=== PATIENT | female | born 1970 ===

== ENCOUNTER 2017-01-22 20:38 | Emergency (ER) | payer MEDICAID ==
[2017-01-22 20:38] VITALS: BMI 29.0
[2017-01-22 20:51] VITALS: BP 128/80; PULSE 80; RESP 18; TEMP 99; O2SAT 97
--- NOTE | 2017-01-22 21:16 | ED PDOC ---
Arrival/HPI - General Historian: Patient <Dayo Worrell - Last Filed: 01/22/17 21:11> - History of Present Illness Symptom Course: Unchanged Severity Level: Mild Activities at Onset: Light Context: Home <Madhu Escobar - Last Filed: 01/23/17 00:56> - General Chief Complaint: ENT Problem Time Seen by Provider: 01/22/17 20:53 - History of Present Illness Narrative History of Present Illness (Text): 01/22/17 21:11 46 yo F presents with foreign body in right ear. States she tried cleaning ear with Qtip and end fell off in her ear. This is not the first time she has done this. No other complaints. (GmDayo) Past Medical History - Provider Review Nursing Documentation Reviewed: Yes - Tetanus Immunization Tetanus Immunization: Unknown - Pulmonary Hx Asthma: Yes - Psychiatric Hx Depression: Yes Hx Emotional Abuse: No Hx Physical Abuse: No Hx Substance Use: No - Past Surgical History Past Surgical History: No Previous - Suicidal Assessment Feels Threatened In Home Enviroment: No <Dayo Worrell - Last Filed: 01/22/17 21:11> Family/Social History - Physician Review Nursing Documentation Reviewed: Yes Family/Social History: No Known Family HX Smoking Status: y Hx Alcohol Use: No Hx Substance Use: No Hx Substance Use Treatment: No <Dayo Worrell - Last Filed: 01/22/17 21:11> Allergies/Home Meds <Dayo Worrell - Last Filed: 01/22/17 21:11> <Madhu Escobar - Last Filed: 01/23/17 00:56> Allergies/Adverse Reactions: Allergies No Known Allergies Allergy (Verified 11/04/12 14:46) Home Medications: Home Meds Medication Instructions Recorded Confirmed Bupropion Hydrochloride 0 mg PO DAILY 11/04/12 11/04/12 [Wellbutrin Xl] Carisoprodol [Soma] 0 mg PO BID 11/04/12 11/04/12 Escitalopram Oxalate [Lexapro] 0 mg PO DAILY 11/04/12 11/04/12 Review of Systems - Physician Review All systems were reviewed & negative as marked: Yes - Review of Systems Constitutional: Normal Eyes: Normal ENT: Other (Qtip in left ear) Respiratory: Normal Cardiovascular: Normal Gastrointestinal: Normal Genitourinary Female: Normal Musculoskeletal: Normal Skin: Normal Neurological: Normal Endocrine: Normal Hemo/Lymphatic: Normal Psychiatric: Normal <Dayo Worrell - Last Filed: 01/22/17 21:11> Physical Exam Vital Signs Reviewed: Yes Temperature: Afebrile Blood Pressure: Normal Pulse: Regular Respiratory Rate: Normal Appearance: Positive for: Well-Appearing, Non-Toxic, Comfortable Pain Distress: None Mental Status: Positive for: Alert and Oriented X 3 - Systems Exam Head: Present: Atraumatic, Normocephalic Ears: Present: Other ([place]ton end of qtip in right ear canal) Respiratory/Chest: No: Respiratory Distress, Accessory Muscle Use Cardiovascular: Present: Normal S1, S2 Neurological: Present: Speech Normal, Motor Func Grossly Intact Skin: Present: Warm, Dry Psychiatric: Present: Alert, Oriented x 3 <Dayo Worrell - Last Filed: 01/22/17 21:11> Medical Decision Making <Dayo Worrell - Last Filed: 01/22/17 21:11> <Madhu Escobar - Last Filed: 01/23/17 00:56> ED Course and Treatment: 01/22/17 21:14 Foreign body in right ear. Removed end of Qtip with alligator forceps with no complications. Examined ear canal for any retained foreign object. Ear canal without any debris. Will discharge pt home with instructions to not use Q tips in the future for ear cleaning. Recommended using hydrogen peroxide. (Dayo Worrell) 01/23/17 00:52 Patient seen and evaluated with resident. Agree with HPI, clinical findings, plan and treatment. Patient is a 46 year old female who presents to the emergency department complaining of foreign body in right ear. Qtip moved with alligator forceps. Patient is stable for discharge. (Madhu Escobar) <Dayo Worrell - Last Filed: 01/22/17 21:11> - PA / [employer] / Resident Statement / has reviewed & agrees with the documentation as recorded. MELVIN has examined the patient and agrees with the treatment plan. <Madhu Escobar - Last Filed: 01/23/17 00:56> - Scribe Statement Jorge Luis Solis Provider Scribe Attestation: All medical record entries made by the Scribe were at my direction and personally dictated by me. I have reviewed the chart and agree that the record accurately reflects my personal performance of the history, physical exam, medical decision making, and the department course for this patient. I have also personally directed, reviewed, and agree with the discharge instructions and disposition. (Madhu Escobar) Disposition/Present on Arrival - Present on Arrival Any Indicators Present on Arrival: No History of DVT/PE: No History of Uncontrolled Diabetes: No Urinary Catheter: No History of Decub. Ulcer: No History Surgical Site Infection Following: None - Disposition Have Diagnosis and Disposition been Completed?: Yes Disposition Time: 21:16 <Dayo Worrell - Last Filed: 01/22/17 21:11> <Madhu Escobar - Last Filed: 01/23/17 00:56> - Disposition Diagnosis: Foreign body in ear Disposition: HOME/ ROUTINE Condition: IMPROVED Discharge Instructions (ExitCare): Ear Foreign Body (ED) Additional Instructions: You were evaluated for a foreign body in your right ear. Discontinue using Q- tips to clean your ears. Recommend using hydrogen peroxide to clean ears. Please return to ED with any new or worsening symptoms. Referrals: Leydi Velasquez DO [Primary Care Provider] - Follow up with primary
== END 2017-01-22 21:12 | disposition home or self-care (01) ==
LOC: ED 20:38
DX: T16.1XXA Foreign body in right ear, initial encounter (principal); X58.XXXA Exposure to other specified factors, initial encounter; Y93.E8 Activity, other personal hygiene